=== PATIENT | male | born 2000 | race Asian ===

== ENCOUNTER 2021-12-07 20:48 | Inpatient (IN) | payer MEDICAID ==
[~2021-12-07] VITALS: Ht 177.8 cm; Wt 81.6 kg
[2021-12-08] MEDS ORDERED: ZOLPIDEM TARTRATE 10 MG TABLET PO PRN (04:45)
[2021-12-08 05:29] VITALS: BP 140/81
[2021-12-08] MEDS: LORazepam 2 MG TABLET PO PRN (09:11)
[2021-12-08] MEDS: HALOPERIDOL 5 MG TABLET PO PRN ×2 (09:11→17:06)
[2021-12-08] MEDS ORDERED: IBUPROFEN 400 MG TABLET PO PRN (09:30)
[2021-12-08] MEDS ORDERED: LOPERAMIDE HCL 2 MG CAPSULE PO PRN (09:30)
[2021-12-08] MEDS ORDERED: MAG HYDROX/AL HYDROX/SIMETH ES 30 ML SUSPENSION UDCUP PO PRN (09:30)
[2021-12-08] MEDS ORDERED: ALBUTEROL SULFATE HFA 90 MCG/PUFF 8 GM INHALER IH PRN (09:30)
[2021-12-08] MEDS ORDERED: PETROLATUM,WHITE 28 GM JELLY TP PRN (09:30)
[2021-12-08] MEDS ORDERED: ACETAMINOPHEN 325 MG TABLET PO PRN (09:30)
[2021-12-08] MEDS ORDERED: MAGNESIUM HYDROXIDE SUSPENSION 30 ML UDCUP PO PRN (09:30)
[2021-12-08] MEDS ORDERED: CloNIDine HCL 0.1 MG TABLET PO PRN (09:30)
[2021-12-08] MEDS ORDERED: DOCUSATE SODIUM 100 MG CAPSULE PO PRN (09:30)
[2021-12-08] MEDS ORDERED: GuaiFENesin/D-METHORPHAN [SUGAR-FREE] 200-20MG/10 ML SYRUP UDCUP PO PRN (09:30)
[2021-12-08] MEDS ORDERED: ONDANSETRON HCL 4 MG TABLET PO PRN (09:30)
[2021-12-08] MEDS ORDERED: NICOTINE 14 MG/24 HOUR PATCH TD PRN (09:30)
[2021-12-08] MEDS ORDERED: DIVA-112 PO (10:03)
[2021-12-08] MEDS ORDERED: RISP2TAB45 PO (10:03)
[2021-12-08 10:32] VITALS: BP 127/78
[2021-12-08] MEDS: RisperiDONE 4 MG TABLET PO SCH ×2 (10:50→20:15)
[2021-12-08] MEDS: DIVALPROEX SODIUM 500 MG DR TABLET PO SCH ×2 (10:50→20:15)
[2021-12-08 16:30] VITALS: BP 127/80
[2021-12-09 00:41] VITALS: BP 126/76
[2021-12-09 07:59] LABS: BASOPHILS % (AUTO) 0.5 % (0.0-2.0); EOSINOPHILS % (AUTO) 1.5 % (1.0-6.0); HEMOGLOBIN 14.5 g/dL (13.5-17.5); LYMPHOCYTES % (AUTO) 24.7 % (22.0-44.0); MEAN CORPUSCULAR HEMOGLOBIN 28.6 pg (26.0-34.0); MEAN CORPUSCULAR HGB CONC 33.7 G/dL (31.0-37.0); MEAN CORPUSCULAR VOLUME 85 fL (80-100); MONOCYTES # (AUTO) 0.6 K/uL (0.1-1.0); MONOCYTES % (AUTO) 7.8 % (2.0-9.0); NEUTROPHILS # (AUTO) 5.3 K/uL (1.8-7.7); NEUTROPHILS % (AUTO) 65.5 % (40.0-70.0); PLATELET COUNT (AUTO) 285 K/uL (150-450); RED BLOOD CELL COUNT(AUTO) 5.06 MIL/uL (4.50-5.90); RED CELL DISTRIBUTION WIDTH 12.8 % (11.5-14.5)
[2021-12-09 08:25] LABS: HEMOGLOBIN A1C 6.1 % (3.8-5.6)
[2021-12-09] MEDS: DIVALPROEX SODIUM 500 MG DR TABLET PO SCH (08:28)
[2021-12-09] MEDS: LORazepam 2 MG TABLET PO PRN (08:28)
[2021-12-09] MEDS: RisperiDONE 4 MG TABLET PO SCH (08:28)
[2021-12-09 08:30] LABS: ALANINE AMINOTRANSFERASE 39 U/L (12-78); ALBUMIN 3.7 g/dL (3.4-5.0); ALKALINE PHOSPHATASE 83 U/L (46-116); ANION GAP 10 mmol/L (8-16); ASPARTATE AMINOTRANSFERASE 18 U/L (15-37); BILIRUBIN,TOTAL 0.3 mg/dL (0.1-1.0); CALCIUM, TOTAL 9.2 mg/dL (8.8-10.5); CARBON DIOXIDE 31 mmol/L (22-29); CHLORIDE 101 mmol/L (98-107); CHOL/HDL RATIO 3.5 (4.2-7.3); CHOLESTEROL 141 mg/dL (131-200); CREATININE 0.89 mg/dL (0.60-1.30); GLOMERULAR FILTR. RATE CALC > 60 mL/min (>60); GLUCOSE,RANDOM 101 mg/dL (70-110); HDL CHOLESTEROL 40 mg/dL (40-60); LDL CHOL (CALC.) 80 mg/dL (0-130); POTASSIUM 4.6 mmol/L (3.5-5.1); SODIUM SERUM 142 mmol/L (136-145); THYROID STIMULATING HORMONE 1.05 uIU/mL (0.36-3.74); TOTAL PROTEIN, SERUM 7.5 g/dL (6.4-8.2); TRIGLYCERIDES 103 mg/dL (15-150); UREA NITROGEN, BLOOD 13 mg/dL (7-18)
[2021-12-09 08:37] VITALS: BP 135/71
[2021-12-09] MEDS ORDERED: RISP4TAB73 PO (11:17)
[2021-12-09] MEDS ORDERED: DIVA-112 PO (11:17)
[2021-12-09 16:24] VITALS: BP 128/82
== END 2021-12-09 19:16 | disposition home or self-care (01) | DRG 753 ==
LOC: B2S 12-08 03:45
PROVIDERS: ADMIT Psychiatry & Neurology Psychiatry; ATTEND Psychiatry & Neurology Psychiatry
DX: F31.2 Bipolar disorder, current episode manic severe with psychotic features (principal); R45.851 Suicidal ideations; G47.00 Insomnia, unspecified; F41.9 Anxiety disorder, unspecified; R10.13 Epigastric pain; F10.11 Alcohol abuse, in remission
CPT/HCPCS: 80053; 80061; 83036; 84436; 84439; 84443; 85025